=== PATIENT | female | born 1960 | race Caucasian/White ===

== ENCOUNTER → 2017-05-09 | Outpatient (CLI) | payer BC | LOC: CFH 12:44 | PROVIDERS: ATTEND Nurse Practitioner Family | DX: M17.11 Unilateral primary osteoarthritis, right knee (principal); G89.29 Other chronic pain ==

== ENCOUNTER → 2017-06-07 | Outpatient (CLI) | payer BC | END | disposition home or self-care (01) | LOC: CFH 12:19 | PROVIDERS: ATTEND Nurse Practitioner Family | DX: M79.641 Pain in right hand (principal); M79.642 Pain in left hand; M79.671 Pain in right foot; M19.072 Primary osteoarthritis, left ankle and foot | CPT/HCPCS: 77077 ==

== ENCOUNTER → 2018-01-11 | Outpatient (CLI) | payer BC ==
[~2018-01-11] MED LIST: BUPIVACAINE/PF 0.5% ONE; CEVI30CA PO; DOCU100T3 PO; EPINEPHRINE 1 MG/ML, 1ML ONE; ESTR0.45 PO; FENTANYL PF 100 MCG/2ML ONE; FENTANYL PF 250 MCG/5ML ONE; FERR325T17 PO; FLUT9.9S NS; GLUC1TAB27 PO; HYDR-3307 PO; HYDR200T72 PO; LIDOCAINE 1%-EPI 1:100K, 30ML ONE; LORA10CA PO; MELO15TA24 PO; MIDAZOLAM 1 MG/ML, 2ML ONE; MONT10TA6 PO; MULT-658 PO; OMEG1CAP2 PO; PRAV20TA2 PO; RABE20TA26 PO; [UNRECOGNIZED DRUG - CODE] PO
== END | disposition home or self-care (01) ==
LOC: STAR 13:23
PROVIDERS: ATTEND Orthopaedic Surgery
DX: Z02.9 Encounter for administrative examinations, unspecified (principal)

== ENCOUNTER 2018-01-18 07:32 | Day surgery (SDC) | payer BC ==
[~2018-01-18] VITALS: Ht 160 cm; Wt 87.0 kg
[~2018-01-18 07:32] MED LIST changes: -BUPIVACAINE/PF 0.5% ONE; -EPINEPHRINE 1 MG/ML, 1ML ONE; -FENTANYL PF 100 MCG/2ML ONE; -FENTANYL PF 250 MCG/5ML ONE; -LIDOCAINE 1%-EPI 1:100K, 30ML ONE; -MIDAZOLAM 1 MG/ML, 2ML ONE
[2018-01-18] MEDS ORDERED: ONDANSETRON ODT 8 MG PO PRN ×2 (08:00→10:00)
[2018-01-18] MEDS ORDERED: PROCHLORPERAZINE 5 MG/ML, 2ML IV PRN (08:00)
[2018-01-18] MEDS ORDERED: DIAZEPAM 5 MG/ML, 2ML IVPush PRN ×2 (08:00→10:00)
[2018-01-18] MEDS ORDERED: ONDANSETRON 2MG/ML, 2ML IV PRN ×2 (08:00→10:00)
[2018-01-18] MEDS ORDERED: MORPHINE SULFATE 4 MG/ML, 1ML IVPush PRN (08:00)
[2018-01-18] MEDS ORDERED: HYDROmorphone 1 MG/ML, 1ML IV PRN ×2 (08:00→10:00)
[2018-01-18] MEDS ORDERED: PLEASE ENTER HEIGHT AND WEIGHT MC SCH (08:00)
[2018-01-18] MEDS ORDERED: OXYcodone 5 MG/5 ML ORAL.SOL UDC PO PRN ×2 (08:00→10:00)
[2018-01-18] MEDS ORDERED: LACTATED RINGERS 1,000 ML IV SCH (08:01)
[2018-01-18] MEDS ORDERED: GABAPENTIN 300 MG CAPSULE PO ONE (08:30)
[2018-01-18] MEDS ORDERED: ACETAMINOPHEN 500 MG TABLET PO ONE (08:30)
[2018-01-18 08:34] VITALS: BP 116/83
[2018-01-18] MEDS ORDERED: ACETAMINOPHEN 500 MG TABLET ONE (08:47)
[2018-01-18] MEDS ORDERED: GABAPENTIN 300 MG CAPSULE ONE (08:48)
[2018-01-18] MEDS ORDERED: PROPOFOL 10 MG/ML, 20ML ONE (09:42)
[2018-01-18] MEDS ORDERED: DEXAMETHASONE 4 MG/ML, 1ML ONE (09:42)
[2018-01-18] MEDS ORDERED: CEFAZOLIN 1,000 MG ONE (09:42)
[2018-01-18] MEDS ORDERED: ONDANSETRON 2MG/ML, 2ML ONE (09:42)
[2018-01-18] MEDS ORDERED: PROCHLORPERAZINE 5 MG/ML, 2ML IM PRN (10:00)
[2018-01-18] MEDS ORDERED: FENTANYL PF 100 MCG/2ML IV PRN (10:00)
[2018-01-18] MEDS ORDERED: OXYcodone 5 MG/5 ML ORAL.SOL UDC ONE (10:34)
[2018-01-18] MEDS ORDERED: FENTANYL PF 100 MCG/2ML ONE ×2 (10:34→11:01)
[2018-01-18] MEDS: FENTANYL PF 100 MCG/2ML IV PRN ×3 (10:42→11:04)
[2018-01-18] MEDS ORDERED: HYDROcodone/APAP 10/325 MG TABLET PO SCH (16:00)
[2018-01-18] MEDS ORDERED: CEVIMELINE HCL 30 MG PO SCH (16:00)
[2018-01-18] MEDS ORDERED: PRAVASTATIN 20 MG TABLET PO SCH (21:00)
[2018-01-18] MEDS ORDERED: [UNRECOGNIZED DRUG - REMARK] NS SCH (21:00)
[2018-01-19] MEDS ORDERED: TEMPLATE NON-FORMULARY MED. (Estrogens, Conjugated** (Premarin**) 0.45 MG) PO SCH (09:00)
[2018-01-19] MEDS ORDERED: MELOXICAM 15 MG PO SCH (09:00)
[2018-01-19] MEDS ORDERED: HYDROXYCHLOROQUINE SULFATE 200 MG PO SCH (09:00)
[2018-01-19] MEDS ORDERED: RABEPRAZOLE SODIUM 40 MG PO SCH (09:00)
[2018-01-19] MEDS ORDERED: FERROUS SULFATE 325 MG PO SCH (09:00)
[2018-01-19] MEDS ORDERED: TEMPLATE NON-FORMULARY MED. (Montelukast Sodium** (Singulair**) 10 MG) PO SCH (09:00)
[2018-01-19] MEDS ORDERED: DOCUSATE SODIUM 200 MG PO SCH (09:00)
[2018-01-19] MEDS ORDERED: TEMPLATE NON-FORMULARY MED. (Loratadine** (Claritin**) 10 MG) PO SCH (09:00)
== END 2018-01-18 12:10 | disposition home or self-care (01) ==
LOC: OUT 07:32
PROVIDERS: ATTEND Orthopaedic Surgery
DX: S83.271A Complex tear of lateral meniscus, current injury, right knee, initial encounter (principal); S83.241A Other tear of medial meniscus, current injury, right knee, initial encounter; M94.261 Chondromalacia, right knee; M65.861 Other synovitis and tenosynovitis, right lower leg; D64.9 Anemia, unspecified; X58.XXXA Exposure to other specified factors, initial encounter; Y93.89 Activity, other specified; Y92.89 Other specified places as the place of occurrence of the external cause; Y99.8 Other external cause status; Z88.1 Allergy status to other antibiotic agents; Z88.0 Allergy status to penicillin; Z98.890 Other specified postprocedural states; Z87.891 Personal history of nicotine dependence; Z72.89 Other problems related to lifestyle
CPT/HCPCS: 29880; J0171; J0690; J1100; J2250; J2405; J2704; J3010; J3490

== ENCOUNTER → 2019-10-11 | Outpatient (CLI) | payer BC, OTHER ==
[~2019-10-11] MED LIST changes: +HYDR-3246 PO; -HYDR-3307 PO
== END | disposition home or self-care (01) ==
LOC: CFH 09:51
PROVIDERS: ATTEND Nurse Practitioner
DX: Z13.820 Encounter for screening for osteoporosis (principal); M85.88 Other specified disorders of bone density and structure, other site; Z78.0 Asymptomatic menopausal state
CPT/HCPCS: 77080

== ENCOUNTER → 2019-10-21 | Outpatient (CLI) | payer OTHER | END | disposition home or self-care (01) | LOC: CFH 07:49 | PROVIDERS: ATTEND Nurse Practitioner | DX: Z12.31 Encounter for screening mammogram for malignant neoplasm of breast (principal) | CPT/HCPCS: 77067 ==

== ENCOUNTER → 2020-02-14 | Outpatient (CLI) | payer OTHER ==
[~2020-02-14] MED LIST changes: +CALC-533 PO; +CLIN150C14 PO; +ESOM40CA PO; +FLUO10TA PO; +IRON PO; +META800T PO; +METH500T7 PO; +NAPR-685 PO; +SUMA100T4 PO; +[UNRECOGNIZED DRUG - OTHER] PO
== END | disposition home or self-care (01) ==
LOC: STAR 07:43
PROVIDERS: ATTEND Orthopaedic Surgery
DX: Z20.828 Contact with and (suspected) exposure to other viral communicable diseases (principal); S83.242A Other tear of medial meniscus, current injury, left knee, initial encounter; X58.XXXA Exposure to other specified factors, initial encounter; Y93.89 Activity, other specified; Y92.89 Other specified places as the place of occurrence of the external cause; Y99.8 Other external cause status
CPT/HCPCS: 87635

== ENCOUNTER 2020-02-20 09:40 | Day surgery (SDC) | payer OTHER ==
[~2020-02-20] VITALS: Ht 157.5 cm; Wt 80.3 kg
[2020-02-20 10:01] VITALS: BP 123/82
[2020-02-20] MEDS ORDERED: CHLORHEXIDINE 15 ML UDC ONE (10:11)
[2020-02-20] MEDS ORDERED: TEMPLATE NON-FORMULARY MED. (Metaxalone** 800 MG) PO SCH (10:30)
[2020-02-20] MEDS ORDERED: CHLORHEXIDINE 15 ML UDC MM ONE (10:30)
[2020-02-20] MEDS ORDERED: SUMATRIPTAN 100 MG TABLET PO SCH (10:30)
[2020-02-20] MEDS ORDERED: LACTATED RINGERS 1,000 ML IV SCH (10:30)
[2020-02-20] MEDS ORDERED: CLINDAMYCIN 150 MG CAPSULE PO SCH (10:30)
[2020-02-20] MEDS ORDERED: FENTANYL PF 250 MCG/5ML ONE (10:41)
[2020-02-20] MEDS ORDERED: MIDAZOLAM 1 MG/ML, 2ML ONE (10:41)
[2020-02-20] MEDS ORDERED: ONDANSETRON 2MG/ML, 2ML ONE (10:42)
[2020-02-20] MEDS ORDERED: PROPOFOL 10 MG/ML, 20ML ONE ×2 (10:42)
[2020-02-20] MEDS ORDERED: CEFAZOLIN 1,000 MG ONE (10:42)
[2020-02-20] MEDS ORDERED: EPINEPHRINE 1 MG/ML, 1ML ONE (11:47)
[2020-02-20] MEDS ORDERED: BUPIVACAINE/PF-EPI 0.5% 1:200K ONE (11:47)
[2020-02-20] MEDS ORDERED: NEOSPORIN OINT, 15GM ONE (11:48)
[2020-02-20] MEDS ORDERED: LIDOCAINE 1%, 20ML ONE (11:48)
[2020-02-20] MEDS ORDERED: DEXAMETHASONE 4 MG/ML, 1ML ONE (11:58)
[2020-02-20] MEDS ORDERED: LABETALOL 5MG/ML, 20ML IV PRN (12:00)
[2020-02-20] MEDS ORDERED: PROMETHAZINE 25 MG/ML, 1ML IVPush PRN (12:00)
[2020-02-20] MEDS ORDERED: MEPERIDINE/PF 25MG/0.5ML IVPush PRN (12:00)
[2020-02-20] MEDS ORDERED: ACETAMINOPHEN 325 MG TABLET PO PRN (12:00)
[2020-02-20] MEDS ORDERED: HALOPERIDOL 5 MG/ML IV PRN (12:00)
[2020-02-20] MEDS ORDERED: hydrALAzine 20 MG/ML, 1ML IV PRN (12:00)
[2020-02-20] MEDS ORDERED: morphine SULFATE 10 MG/ML, 1ML IVPush PRN (12:00)
[2020-02-20] MEDS ORDERED: KETOROLAC 30 MG/1 ML ONE (12:12)
[2020-02-20] MEDS ORDERED: FENTANYL PF 100 MCG/2ML ONE (12:38)
[2020-02-20] MEDS ORDERED: ACETAMINOPHEN 650 MG/20.3 ML UDC ONE (12:38)
[2020-02-20] MEDS ORDERED: OXYcodone 5 MG/5 ML ORAL.SOL UDC ONE ×2 (12:38→12:51)
[2020-02-20] MEDS: OXYcodone 5 MG/5 ML ORAL.SOL UDC PO PRN ×2 (12:39→13:09)
[2020-02-20] MEDS: FENTANYL PF 100 MCG/2ML IV PRN ×3 (12:42→12:59)
[2020-02-20] MEDS ORDERED: HYDROmorphone 1 MG/ML, 1ML INJ ONE (12:50)
[2020-02-20] MEDS: HYDROmorphone 1 MG/ML, 1ML INJ IVPush PRN ×2 (13:08→13:17)
[2020-02-20] MEDS ORDERED: HYDROcodone/APAP 10/325 MG TABLET PO SCH (16:00)
[2020-02-20] MEDS ORDERED: [UNRECOGNIZED DRUG - REMARK] NS SCH (21:00)
[2020-02-20] MEDS ORDERED: PRAVASTATIN 20 MG TABLET PO SCH (21:00)
[2020-02-20] MEDS ORDERED: NAPROXEN 500 MG TABLET PO SCH (21:00)
[2020-02-21] MEDS ORDERED: TEMPLATE NON-FORMULARY MED. (Estrogens, Conjugated** (Premarin**) 0.45 MG) PO SCH (09:00)
[2020-02-21] MEDS ORDERED: METHOCARBAMOL 500 MG TABLET PO SCH (09:00)
[2020-02-21] MEDS ORDERED: TEMPLATE NON-FORMULARY MED. (Esomeprazole Magnesium** (Nexium**) 40 MG) PO SCH (09:00)
[2020-02-21] MEDS ORDERED: TEMPLATE NON-FORMULARY MED. (Loratadine** (Claritin**) 10 MG) PO SCH (09:00)
[2020-02-21] MEDS ORDERED: FLUOXETINE HCL 10 MG PO SCH (09:00)
[2020-02-21] MEDS ORDERED: MONTELUKAST 10 MG TABLET PO SCH (09:00)
== END 2020-02-20 15:20 | disposition home or self-care (01) ==
LOC: OUT 09:40
PROVIDERS: ATTEND Orthopaedic Surgery
DX: S83.232A Complex tear of medial meniscus, current injury, left knee, initial encounter (principal); M94.262 Chondromalacia, left knee; K21.9 Gastro-esophageal reflux disease without esophagitis; Z79.891 Long term (current) use of opiate analgesic; Z79.899 Other long term (current) drug therapy; Z88.0 Allergy status to penicillin; Z88.2 Allergy status to sulfonamides; X58.XXXA Exposure to other specified factors, initial encounter; Y93.89 Activity, other specified; Y92.89 Other specified places as the place of occurrence of the external cause; Y99.8 Other external cause status
CPT/HCPCS: 29881; J0171; J0690; J1100; J1170; J1885; J2250; J2405; J2704; J3010; J7120

== ENCOUNTER → 2020-07-31 | Outpatient (CLI) | payer OTHER ==
[~2020-07-31] MED LIST changes: -CLIN150C14 PO; +CLIN150C15 PO; -HYDR-3246 PO; +HYDR-3248 PO; +METH-639 PO; -METH500T7 PO; -RABE20TA26 PO; +RABE20TA29 PO
[2020-07-31 09:25] LABS: MEAN CORPUSCULAR HGB CONC 33.6 g/dL (32.4-35.8); MEAN PLATELET VOLUME 7.9 fL (7.4-10.4); PLATELET COUNT 278 x10^3/uL (130-400); RED BLOOD COUNT 4.72 x10^6/uL (3.82-5.3); RED CELL DISTRIBUTION WIDTH 13.5 % (9.6-15.2)
[2020-07-31 09:31] LABS: ALANINE AMINOTRANSFERASE 29 U/L (12-78); ALBUMIN 4.2 g/dL (3.4-5.0); ANION GAP 2 mmol/L (5-15); CALCIUM 9.6 mg/dL (8.5-10.1); CHLORIDE 109 mmol/L (98-107); CHOLESTEROL, TOTAL 202 mg/dL (140-239); CREATININE 0.68 mg/dL (0.55-1.02)
[2020-07-31 09:41] LABS: ALKALINE PHOSPHATASE 69 U/L (45-117); BILIRUBIN,TOTAL 0.3 mg/dL (0.2-1.0); CHOL/HDL RATIO 5.1; HDL CHOL % 20 % (28-40); HDL CHOLESTEROL (DIRECT) 40 mg/dL (40-60); LDL CHOLESTEROL,CALCULATED 136 mg/dL (54-169); LDL/HDL RATIO 3.4 (0.5-3.0); TOTAL PROTEIN 7.8 g/dL (6.4-8.2); TRIGLYCERIDES 130 mg/dL (50-200); VLDL CHOLESTEROL 26 mg/dL (0-25)
== END | disposition home or self-care (01) ==
LOC: LAB 08:50
PROVIDERS: ATTEND Nurse Practitioner Family
DX: Z00.01 Encounter for general adult medical examination with abnormal findings (principal)
CPT/HCPCS: 36415; 80053; 80061; 82306; 84443; 85027